=== PATIENT | female | born 1955 | race Caucasian/White ===

== ENCOUNTER 2018-12-21 13:13 | Inpatient (IN) | payer SELFPAY ==
[2018-12-21 14:00] LABS: Absolute Lymphocytes (CBC) 0.4 K/uL (0.7-4.9); Basophils % 0.6 % (0-1.3); Eosinophils % 0.1 % (0-4.4); MPV 8.9 fL (7.6-11.3); Monocytes % 10.7 % (3.3-12.3); RBC Red Blood Cell Count 4.61 M/uL (3.86-4.86)
[2018-12-21] MEDS ORDERED: NA CHLORIDE 0.9% 2,000 ML ONE (14:11)
--- NOTE | 2018-12-21 14:14 | EDPHYS ---
Physician Documentation [facility] Name: Marielos Bryant Age: 63 yrs Sex: Female : 1955 Arrival Date: 12/21/2018 Time: 13:15 Bed 6 Private MD: ED Physician Hipolito Farooq HPI: 12/21 14:05 This 63 yrs old Female presents to ER via EMS with complaints of Syncope. jana 14:05 The patient has experienced near-syncope. Onset: The symptoms/episode began/occurred jana this morning, today. Duration: This was a single episode, that lasted 1 minute(s). Context: occurred outdoors, occurred while the patient was walking. Associated injury: The patient did not suffer any apparent associated injury. Associated signs and symptoms: Pertinent positives: dizziness, lightheadedness, nausea. Current symptoms: weakness. The patient has not experienced similar symptoms in the past. Historical: - Allergies: 13:35 Lisinopril; la1 - Home Meds: 16:08 atenolol 50 mg Oral tab 1 tab once daily [Active]; furosemide 20 mg Oral tab 1 tab once la1 daily [Active]; clonidine HCl 0.3 mg Oral tab 1 tab nightly [Active]; olmesartan oral oral [Active]; librium [Active]; - PMHx: 13:35 ETOH abuse; Hypertension; la1 14:40 Hepatitis; la1 - Immunization history:: Adult Immunizations up to date, Adult Immunizations up to date. - Social history:: Smoking status: Patient/guardian denies using tobacco. - Ebola Screening: : No symptoms or risks identified at this time. - Family history:: not pertinent. ROS: 14:05 Constitutional: Negative for fever, chills, and weight loss, Eyes: Negative for injury, jana pain, redness, and discharge, ENT: Negative for injury, pain, and discharge, Neck: Negative for injury, pain, and swelling, Cardiovascular: Negative for chest pain, palpitations, and edema, Respiratory: Negative for shortness of breath, cough, wheezing, and pleuritic chest pain, Abdomen/GI: Negative for abdominal pain, nausea, vomiting, diarrhea, and constipation, Back: Negative for injury and pain, : Negative for injury, bleeding, discharge, and swelling, MS/Extremity: Negative for injury and deformity, Skin: Negative for injury, rash, and discoloration, Neuro: Negative for headache, weakness, numbness, tingling, and seizure, Psych: Negative for depression, anxiety, suicide ideation, homicidal ideation, and hallucinations, Allergy/Immunology: Negative for hives, rash, and allergies, Endocrine: Negative for neck swelling, polydipsia, polyuria, polyphagia, and marked weight changes, Hematologic/Lymphatic: Negative for swollen nodes, abnormal bleeding, and unusual bruising. Exam: 14:05 Constitutional: This is a well developed, well nourished patient who is awake, alert, jana and in no acute distress. Head/Face: Normocephalic, atraumatic. Eyes: Pupils equal round and reactive to light, extra-ocular motions intact. Lids and lashes normal. Conjunctiva and sclera are non-icteric and not injected. Cornea within normal limits. Periorbital areas with no swelling, redness, or edema. ENT: Nares patent. No nasal discharge, no septal abnormalities noted. Tympanic membranes are normal and external auditory canals are clear. Oropharynx with no redness, swelling, or masses, exudates, or evidence of obstruction, uvula midline. Mucous membranes moist. Neck: Trachea midline, no thyromegaly or masses palpated, and no cervical lymphadenopathy. Supple, full range of motion without nuchal rigidity, or vertebral point tenderness. No Meningismus. Chest/axilla: Normal chest wall appearance and motion. Nontender with no deformity. No lesions are appreciated. Cardiovascular: Regular rate and rhythm with a normal S1 and S2. No gallops, murmurs, or rubs. Normal PMI, no JVD. No pulse deficits. Respiratory: Lungs have equal breath sounds bilaterally, clear to auscultation and percussion. No rales, rhonchi or wheezes noted. No increased work of breathing, no retractions or nasal flaring. Abdomen/GI: Soft, non-tender, with normal bowel sounds. No distension or tympany. No guarding or rebound. No evidence of tenderness throughout. Back: No spinal tenderness. No costovertebral tenderness. Full range of motion. Female : Normal external genitalia. Skin: Warm, dry with normal turgor. Normal color with no rashes, no lesions, and no evidence of cellulitis. MS/ Extremity: Pulses equal, no cyanosis. Neurovascular intact. Full, normal range of motion. Neuro: Awake and alert, GCS 15, oriented to person, place, time, and situation. Cranial nerves II-XII grossly intact. Motor strength 5/5 in all extremities. Sensory grossly intact. Cerebellar exam normal. Normal gait. Psych: Awake, alert, with orientation to person, place and time. Behavior, mood, and affect are within normal limits. Vital Signs: 13:15 BP 76 / 50; Pulse 59; Resp 16; Pulse Ox 98% on R/A; la1 14:08 BP 88 / 54; Pulse 62; Resp 16; Pulse Ox 98% on R/A; la1 14:40 BP 99 / 65; Pulse 58; Resp 16; Temp 97.6; Pulse Ox 98% on R/A; la1 15:00 BP 99 / 68; Pulse 98; Resp 18 S; Pulse Ox 98% on R/A; aa5 15:54 BP 96 / 62; Pulse 81; Resp 16; Pulse Ox 98% on R/A; la1 16:09 BP 112 / 85; Pulse 85; Resp 16; Pulse Ox 98% on R/A; la1 17:09 BP 108 / 78; Pulse 84; Resp 16; Pulse Ox 98% on R/A; la1 MDM: 13:23 Patient medically screened. [facility] 14:07 Data reviewed: vital signs, nurses notes, lab test result(s), EKG, radiologic studies, [facility] CT scan, plain films. 12/21 13:29 Order name: Basic Metabolic Panel [facility] 12/21 13:29 Order name: CBC with Diff [facility] 12/21 13:29 Order name: LFT's [facility] 12/21 13:29 Order name: Magnesium [facility] 12/21 13:29 Order name: NT PRO-BNP [facility] 12/21 13:29 Order name: PT-INR [facility] 12/21 13:29 Order name: Troponin (emerg Dept Use Only); Complete Time: 14:37 [facility] 12/21 13:29 Order name: Lipase; Complete Time: 14:37 [facility] 12/21 13:29 Order name: Acetaminophen; Complete Time: 14:37 [facility] 12/21 13:29 Order name: ETOH Level; Complete Time: 14:16 [facility] 12/21 13:29 Order name: Ptt, Activated; Complete Time: 14:37 [facility] 12/21 13:29 Order name: Salicylate; Complete Time: 15:29 [facility] 12/21 13:29 Order name: Urine Drug Screen; Complete Time: 15:41 [facility] 12/21 13:29 Order name: XRAY Chest (1 view); Complete Time: 15:29 [facility] 12/21 13:29 Order name: Ckmb; Complete Time: 14:37 [facility] 18 13:29 Order name: CK; Complete Time: 14:37 [facility] 12/21 13:31 Order name: Basic Metabolic Panel; Complete Time: 14:37 ED[facility] 18 13:31 Order name: CBC with Automated Diff; Complete Time: 14:16 [facility] 18 13:31 Order name: Liver (Hepatic) Function; Complete Time: 14:37 [facility] 12/21 13:31 Order name: Magnesium; Complete Time: 14:37 [facility] 18 13:31 Order name: NT PRO-BNP; Complete Time: 14:37 [facility] 18 13:31 Order name: Protime (+INR); Complete Time: 14:37 [facility] 12/21 14:39 Order name: Urine Osmolality; Complete Time: 16:11 [facility] 12/21 14:39 Order name: Urine Sodium Random; Complete Time: 15:41 [facility] 12/21 14:39 Order name: Osmolality, Serum; Complete Time: 16:11 [facility] 12/21 15:05 Order name: Urine Culture la1 12/21 15:06 Order name: Urine Dipstick--Ancillary (enter results) bd 12/21 15:25 Order name: Urine Dipstick-Ancillary; Complete Time: 15:29 [facility] 12/21 13:29 Order name: EKG; Complete Time: 13:31 [facility] 12/21 13:29 Order name: Cardiac monitoring; Complete Time: 13:51 [facility] 12/21 13:29 Order name: EKG - Nurse/Tech; Complete Time: 13:51 [facility] 12/21 13:29 Order name: IV Saline Lock; Complete Time: 13:51 [facility] 12/21 13:29 Order name: Labs collected and sent; Complete Time: 13:51 [facility] 12/21 13:29 Order name: O2 Per Protocol; Complete Time: 14:13 [facility] 12/21 13:29 Order name: O2 Sat Monitoring; Complete Time: 14:13 [facility] 12/21 13:29 Order name: Urine Dipstick-Ancillary (obtain specimen); Complete Time: 16:05 [facility] 12/21 14:39 Order name: IV Saline Lock - Large Bore; Complete Time: 14:40 [facility] 12/21 14:44 Order name: Martins; Complete Time: 15:04 [facility] 12/21 14:44 Order name: Seizure Precautions; Complete Time: 15:04 [facility] 12/21 14:45 Order name: Abdomen ; Complete Time: 16:38 EDMS 12/21 14:56 Order name: US Abdomen Limited [facility] 12/21 15:45 Order name: US; Complete Time: 16:11 EDMS Administered Medications: 14:07 Drug: NS 0.9% 1000 ml Route: IV; Rate: 1 bolus; Site: right antecubital; la1 15:20 Follow up: IV Status: Completed infusion; IV Intake: 1000ml aa5 14:07 Drug: NS 0.9% 1000 ml Route: IV; Rate: 1 bolus; Site: right antecubital; la1 15:20 Follow up: IV Status: Completed infusion; IV Intake: 1000ml aa5 15:20 Drug: Pepcid 20 mg Route: IVP; Site: right antecubital; aa5 15:46 Follow up: Response: No adverse reaction la1 15:22 Drug: Thiamine 100 mg Route: IV; Rate: bolus; Site: right antecubital; aa5 15:46 Follow up: IV Status: Completed infusion la1 15:23 Drug: Potassium Effervescent Tablet 25 mEq Route: PO; aa5 15:45 Follow up: Response: No adverse reaction la1 15:24 Drug: Potassium Chloride 20 mEq Route: IV; Rate: per protocol; Site: right antecubital; aa5 15:45 Follow up: IV Status: Completed infusion la1 16:02 Drug: Rocephin - (cefTRIAXone) 1 grams Route: IVPB; Infused Over: 30 mins; Site: right la1 upper arm; 16:03 Follow up: IV Status: Infusion continued upon admission la1 16:05 Not Given (Other Intervention Used): NS 0.9% with KCl 20 mEq/L 1000 ml IV at 125 ml/hr la1 continuous 16:48 Drug: Flagyl 500 mg Volume: 100 ml; Route: IVPB; Rate: 200 ml/hr; Infused Over: 30 la1 mins; Site: right antecubital; 16:50 Follow up: IV Status: Infusion continued upon admission la1 16:58 Drug: Cipro 400 mg Volume: 200 ml; Route: IVPB; Infused Over: 60 mins; Site: right la1 antecubital; 16:58 Follow up: IV Status: Infusion continued upon admission la1 Disposition: 12/21/18 14:13 Hospitalization ordered by Torsten Davies for Inpatient Admission. Preliminary diagnosis are Weakness, Syncope and collapse - near, Hypotension, Heat exhaustion, unspecified, Dehydration, Other chronic pancreatitis, Hypo-osmolality and hyponatremia, Hypokalemia, Unspecified kidney failure, Urinary tract infection, site not specified, Left sided colitis. - Bed requested for Telemetry/MedSurg (Inpatient). - Status is Inpatient Admission. la1 - Condition is Fair. - Problem is new. - Symptoms have improved. UTI on Admission? No Signatures: Dispatcher [employer] EDLA Anastasiya Reich RN RN dw Anderson, Corey, MD MD cha Calderon, Audri, RN RN aa5 Anmol Leos RN RN la1 Corrections: (The following items were deleted from the chart) 13:34 13:31 BASIC METABOLIC PANEL+C.LAB.BRZ ordered. [facility] EDLA 14:13 14:13 Hospitalization Ordered by Tortsen Davies MD for Inpatient Admission. Preliminary jana diagnosis is Weakness; Syncope and collapse - near; Hypotension; Heat exhaustion, unspecified. Bed requested for Telemetry/MedSurg (Inpatient). Status is Inpatient Admission. Condition is Fair. Problem is new. Symptoms have improved. UTI on Admission? No. [facility] 14:41 14:13 12/21/2018 14:13 Hospitalization Ordered by Torsten Davies MD for Inpatient jana Admission. Preliminary diagnosis is Weakness; Syncope and collapse - near; Hypotension; Heat exhaustion, unspecified; Dehydration. Bed requested for Telemetry/MedSurg (Inpatient). Status is Inpatient Admission. Condition is Fair. Problem is new. Symptoms have improved. UTI on Admission? No. jana 14:45 14:40 Abdomen Pelvis W Con+CT.RAD.BRZ ordered. [facility] 14:46 14:41 12/21/2018 14:13 Hospitalization Ordered by Torsten Davies MD for Inpatient jana Admission. Preliminary diagnosis is Weakness; Syncope and collapse - near; Hypotension; Heat exhaustion, unspecified; Dehydration; Other chronic pancreatitis; Hypo-osmolality and hyponatremia; Hypokalemia. Bed requested for Telemetry/MedSurg (Inpatient). Status is Inpatient Admission. Condition is Fair. Problem is new. Symptoms have improved. UTI on Admission? No. jana 14:47 14:44 Abdomen Pelvis W Con+CT.RAD.BRZ ordered. ED[facility] EDMS 15:08 14:46 12/21/2018 14:13 Hospitalization Ordered by Torsten Davies MD for Inpatient dw Admission. Preliminary diagnosis is Weakness; Syncope and collapse - near; Hypotension; Heat exhaustion, unspecified; Dehydration; Other chronic pancreatitis; Hypo-osmolality and hyponatremia; Hypokalemia; Unspecified kidney failure. Bed requested for Telemetry/MedSurg (Inpatient). Status is Inpatient Admission. Condition is Fair. Problem is new. Symptoms have improved. UTI on Admission? No. jana 15:30 15:08 12/21/2018 14:13 Hospitalization Ordered by Torsten Davies MD for Inpatient jana Admission. Preliminary diagnosis is Weakness; Syncope and collapse - near; Hypotension; Heat exhaustion, unspecified; Dehydration; Other chronic pancreatitis; Hypo-osmolality and hyponatremia; Hypokalemia; Unspecified kidney failure. Bed requested for Telemetry/MedSurg (Inpatient). Status is Inpatient Admission. Condition is Fair. Problem is new. Symptoms have improved. UTI on Admission? No. dw 16:40 15:30 12/21/2018 14:13 Hospitalization Ordered by Torsten Davies MD for Inpatient jana Admission. Preliminary diagnosis is Weakness; Syncope and collapse - near; Hypotension; Heat exhaustion, unspecified; Dehydration; Other chronic pancreatitis; Hypo-osmolality and hyponatremia; Hypokalemia; Unspecified kidney failure; Urinary tract infection, site not specified. Bed requested for Telemetry/MedSurg (Inpatient). Status is Inpatient Admission. Condition is Fair. Problem is new. Symptoms have improved. UTI on Admission? No. jana 17:11 16:40 12/21/2018 14:13 Hospitalization Ordered by Torsten Davies MD for Inpatient la1 Admission. Preliminary diagnosis is Weakness; Syncope and collapse - near; Hypotension; Heat exhaustion, unspecified; Dehydration; Other chronic pancreatitis; Hypo-osmolality and hyponatremia; Hypokalemia; Unspecified kidney failure; Urinary tract infection, site not specified; Left sided colitis. Bed requested for Telemetry/MedSurg (Inpatient). Status is Inpatient Admission. Condition is Fair. Problem is new. Symptoms have improved. UTI on Admission? No. jana
--- NOTE | 2018-12-21 14:14 | ER ---
Nurse's Notes [facility] Name: Marielos Bryant Age: 63 yrs Sex: Female : 1955 Arrival Date: 12/21/2018 Time: 13:15 Bed 6 Private MD: Diagnosis: Weakness;Syncope and collapse-near;Hypotension;Heat exhaustion, unspecified;Dehydration;Other chronic pancreatitis;Hypo-osmolality and hyponatremia;Hypokalemia;Unspecified kidney failure;Urinary tract infection, site not specified;Left sided colitis Presentation: 12/21 13:33 Presenting complaint: Patient states: I am in [place] for ETOH withdraws and I have la1 not been eating for drinking well in the last 5 days. I went outside today and passed out, BP 70s/50s on scene. Transition of care: patient was not received from another setting of care. Onset of symptoms was December 21, 2018. Risk Assessment: Do you want to hurt yourself or someone else? Patient reports no desire to harm self or others. Initial Sepsis Screen: Does the patient meet any 2 criteria? No. Patient's initial sepsis screen is negative. Does the patient have a suspected source of infection? No. Patient's initial sepsis screen is negative. Care prior to arrival: None. 13:33 Method Of Arrival: EMS: [facility] la1 13:33 Acuity: ASHLYN 2 la1 Historical: - Allergies: 13:35 Lisinopril; la1 - Home Meds: 16:08 atenolol 50 mg Oral tab 1 tab once daily [Active]; furosemide 20 mg Oral tab 1 tab once la1 daily [Active]; clonidine HCl 0.3 mg Oral tab 1 tab nightly [Active]; olmesartan oral oral [Active]; librium [Active]; - PMHx: 13:35 ETOH abuse; Hypertension; la1 14:40 Hepatitis; la1 - Immunization history:: Adult Immunizations up to date, Adult Immunizations up to date. - Social history:: Smoking status: Patient/guardian denies using tobacco. - Ebola Screening: : No symptoms or risks identified at this time. - Family history:: not pertinent. Screenin:52 Abuse screen: Denies threats or abuse. Nutritional screening: No deficits noted. la1 Tuberculosis screening: No symptoms or risk factors identified. Fall Risk None identified. Assessment: 13:52 General: Appears in no apparent distress. uncomfortable, Behavior is calm, cooperative. la1 Pain: Denies pain. Neuro: Level of Consciousness is awake, obeys commands, lethargic, Oriented to person, place, time, situation. Cardiovascular: Capillary refill < 3 seconds Patient's skin is warm and dry. Rhythm is sinus tachycardia. Respiratory: Airway is patent Respiratory effort is even, unlabored, Respiratory pattern is regular, symmetrical, Breath sounds are clear bilaterally. GI: No signs and/or symptoms were reported involving the gastrointestinal system. : No signs and/or symptoms were reported regarding the genitourinary system. 15:00 Reassessment: Patient appears in no apparent distress at this time. No changes from la1 previously documented assessment. Patient and/or family updated on plan of care and expected duration. Pain level reassessed. 16:07 Reassessment: assisted patient to bedside commode as she stated it felt as if she ss needed to have a BM. Pt did not have BM, but is now back in bed, lights dimmed per request. On monitors. 16:24 Reassessment: Awaiting results from CT before admission. la1 Vital Signs: 13:15 BP 76 / 50; Pulse 59; Resp 16; Pulse Ox 98% on R/A; la1 14:08 BP 88 / 54; Pulse 62; Resp 16; Pulse Ox 98% on R/A; la1 14:40 BP 99 / 65; Pulse 58; Resp 16; Temp 97.6; Pulse Ox 98% on R/A; la1 15:00 BP 99 / 68; Pulse 98; Resp 18 S; Pulse Ox 98% on R/A; aa5 15:54 BP 96 / 62; Pulse 81; Resp 16; Pulse Ox 98% on R/A; la1 16:09 BP 112 / 85; Pulse 85; Resp 16; Pulse Ox 98% on R/A; la1 17:09 BP 108 / 78; Pulse 84; Resp 16; Pulse Ox 98% on R/A; la1 ED Course: 13:15 Patient arrived in ED. la1 13:23 Hipolito Farooq MD is Attending Physician. jana 13:33 Anmol Leos RN is Primary Nurse. la1 13:34 Triage completed. la1 13:35 Arm band placed on left wrist. EKG completed in triage. Results shown to MD. la1 13:52 Placed in gown. Bed in low position. Call light in reach. athletic monitor on. Pulse ox la1 on. NIBP on. 13:52 No provider procedures requiring assistance completed. Accessed peripheral vein via la1 ultrasound, utilizing dynamic ultrasound technique using 18G Sureflo IV catheter Clean \T\ dry. Dressing intact. Good blood return. Flushes easily. RAC. 14:11 Torsten Davies MD is Hospitalizing Provider. jana 14:33 X-ray completed. Portable x-ray completed in exam room. Patient tolerated procedure jb2 well. 14:36 XRAY Chest (1 view) In Process Unspecified. EDMS 15:00 Martins cath inserted, using sterile technique, 16 Fr., by me, balloon inflated, to aa5 gravity drainage, urine specimen collected. returned clear yellow urine. Patient tolerated well. 17:11 Patient admitted, IV remains in place. la1 Administered Medications: 14:07 Drug: NS 0.9% 1000 ml Route: IV; Rate: 1 bolus; Site: right antecubital; la1 15:20 Follow up: IV Status: Completed infusion; IV Intake: 1000ml aa5 14:07 Drug: NS 0.9% 1000 ml Route: IV; Rate: 1 bolus; Site: right antecubital; la1 15:20 Follow up: IV Status: Completed infusion; IV Intake: 1000ml aa5 15:20 Drug: Pepcid 20 mg Route: IVP; Site: right antecubital; aa5 15:46 Follow up: Response: No adverse reaction la1 15:22 Drug: Thiamine 100 mg Route: IV; Rate: bolus; Site: right antecubital; aa5 15:46 Follow up: IV Status: Completed infusion la1 15:23 Drug: Potassium Effervescent Tablet 25 mEq Route: PO; aa5 15:45 Follow up: Response: No adverse reaction la1 15:24 Drug: Potassium Chloride 20 mEq Route: IV; Rate: per protocol; Site: right antecubital; aa5 15:45 Follow up: IV Status: Completed infusion la1 16:02 Drug: Rocephin - (cefTRIAXone) 1 grams Route: IVPB; Infused Over: 30 mins; Site: right la1 upper arm; 16:03 Follow up: IV Status: Infusion continued upon admission la1 16:05 Not Given (Other Intervention Used): NS 0.9% with KCl 20 mEq/L 1000 ml IV at 125 ml/hr la1 continuous 16:48 Drug: Flagyl 500 mg Volume: 100 ml; Route: IVPB; Rate: 200 ml/hr; Infused Over: 30 la1 mins; Site: right antecubital; 16:50 Follow up: IV Status: Infusion continued upon admission la1 16:58 Drug: Cipro 400 mg Volume: 200 ml; Route: IVPB; Infused Over: 60 mins; Site: right la1 antecubital; 16:58 Follow up: IV Status: Infusion continued upon admission la1 Intake: 15:20 IV: 1000ml; Total: 1000ml. aa5 15:20 IV: 1000ml; Total: 2000ml. aa5 Outcome: 14:13 Decision to Hospitalize by Provider. jana 17:10 Admitted to Tele accompanied by tech, room 403, with chart. la1 17:10 Condition: stable 17:10 Instructed on the need for admit. 17:11 Patient left the ED. la1 Signatures: Dispatcher [employer] Hipolito Oconnor MD MD cha Buechter, Jesse jb2 Venus Williamson RN RN aa5 Hina Palencia RN RN ss Attema, Lee, RN RN la1
[2018-12-21 14:27] LABS: ALT/SGPT 61 U/L (12-78); AST/SGOT 73 U/L (15-37); Albumin 4.4 g/dL (3.4-5.0); Alkaline Phosphatase 76 U/L (45-117); BUN Blood Urea Nitrogen 78 mg/dL (7-18); Bicarbonate 26 mmol/L (21-32); Bilirubin Direct 0.5 mg/dL (0-0.2); Bilirubin Total 1.2 mg/dL (0.2-1.0); CKMB Creatine Kinase MB 2.1 ng/mL (0.3-3.6); Glucose Level 121 mg/dL (74-106); Lipase 20350 U/L (73-393); Magnesium 3.4 mg/dL (1.8-2.4); NT PRO-BNP 2979 pg/mL (<125); Protein, Total 9.3 g/dL (6.4-8.2); Sodium Level 121 mmol/L (136-145); Troponin (Emerg Dept Use Only) < 0.02 ng/mL (0.0-0.045)
[2018-12-21 14:29] LABS: Potassium 2.9 mmol/L (3.5-5.1); Protime INR 0.87
--- NOTE | 2018-12-21 14:58 | RAD REPORT ---
EXAM DESCRIPTION: RAD - Chest Single View - 12/21/2018 2:36 pm CLINICAL HISTORY: Cough, syncope COMPARISON: None. TECHNIQUE: AP portable chest image was obtained 1435 hour . FINDINGS: Lungs are clear. Heart and vasculature are normal. No measurable pleural effusion and no p neumothorax. No acute bony abnormality seen. No acute aortic findings suspected. Calcified breast imp lant capsules noted. IMPRESSION: No acute cardiopulmonary process.
[2018-12-21 15:21] LABS: Urine Blood 1+ (NEG); Urine Glucose TRACE (NEG); Urine Protein 1+ (NEG); Urine Specific Gravity 1.015 (1.005-1.030)
[2018-12-21] MEDS ORDERED: POTASSIUM 25 MEQ EFFERV TAB ONE (15:28)
[2018-12-21] MEDS ORDERED: THIAMINE 200 MG/2 ML INJ ONE (15:28)
[2018-12-21] MEDS ORDERED: FAMOTIDINE 20 MG/2 ML VIAL IV ONE (15:29)
[2018-12-21] MEDS ORDERED: KCL 20 MEQ/100 mL IVPB 20 MEQ/100 ML BAG IV ONE (15:29)
[2018-12-21] MEDS ORDERED: NA CHLORIDE 0.9% 500 ML ONE (15:29)
[2018-12-21] MEDS ORDERED: NS KCL 20MEQ 1,000 ML IV ONE (15:29)
[2018-12-21 15:31] LABS: Barbiturates NEGATIVE (NEGATIVE); Benzodiazepines POSITIVE (NEGATIVE); Cocaine NEGATIVE (NEGATIVE); METHAMPHETAM NEGATIVE (NEGATIVE); Methadone NEGATIVE (NEGATIVE); Opiates NEGATIVE (NEGATIVE); Phencyclidine NEGATIVE (NEGATIVE); THC Cannibis NEGATIVE (NEGATIVE)
--- NOTE | 2018-12-21 15:43 | RAD REPORT ---
EXAM DESCRIPTION: US - Abdomen Exam Limited - 12/21/2018 3:31 pm CLINICAL HISTORY: ABD PAIN COMPARISON: No comparisons FINDINGS: The gallbladder demonstrates no gallstones. No pericholecystic fluid or gallbladder wall t hickening. The common bile duct is normal measuring 4-5 mm. The liver demonstrates no findings of intrahepatic biliary dilatation. IMPRESSION: Unremarkable examination.
[2018-12-21] MEDS ORDERED: CEFTRIAXONE/SWI 1gm 1 GM/10 ML SYR ONE (15:53)
--- NOTE | 2018-12-21 16:28 | EKG ---
Test Date: 2018-12-21 Test Time: 13:22:20 [employer]er: CHRIS-Maryuri MEASUREMENT RESULTS: Intervals: Rate: 57 AR: 188 QRSD: 94 QT: 578 QTc: 562 [place]: P: 42 AR: 188 QRS: -12 T: 54 INTERPRETIVE STATEMENTS: Sinus bradycardia RSR' or QR pattern in V1 suggests right ventricular conduction delay Inferior-posterior infarct, age undetermined Prolonged QT Abnormal ECG No previous ECG available for comparison Electronically Signed On 12-21-18 16:27:21 CDT by Jose Luther
--- NOTE | 2018-12-21 16:33 | RAD REPORT ---
EXAM DESCRIPTION: CT - Abdomen Pelvis Wo Contrast - 12/21/2018 4:23 pm CLINICAL HISTORY: Abdominal pain. ABD PAIN COMPARISON: <Comparisons> TECHNIQUE: CT imaging of the abdomen and pelvis was performed without contrast. Solid organ and vasc ular assessment is limited due to lack of IV contrast. All CT scans are performed using dose optimization technique as appropriate and may include automated exposure control or mA/KV adjustment according to patient size. FINDINGS: The lung bases are mildly emphysematous. The liver, spleen, adrenal glands and kidneys are within normal limits for a limited non-contrast exa mination.Small amount of inflammation is seen around the pancreas. No bowel obstruction, free air, free fluid or abscess. There is diffuse mucosal thickening of the col on, greatest involving the cecum and ascending colon compatible with a nonspecific colitis. The appen alexy is normal. Multilevel degenerative spondylosis of the lumbar spine. IMPRESSION: [id number] nonspecific colitis is present, greatest involving the right colon. No pneumatosis evident. Mild inflammation around the pancreas, suspicious for pancreatitis. Suggest correlation with amylase and lipase levels. A limited non-contrast examination was performed as detailed.
[2018-12-21] MEDS ORDERED: METRONIDAZOLE 500mg IVPB 500 MG/100 ML BAG IV ONE (17:01)
[2018-12-21] MEDS ORDERED: CIPROFLOXACIN 400mg IV 400 MG/200 ML BAG IV ONE (17:01)
[2018-12-21] MEDS ORDERED: ONDANSETRON 4 MG/2 ML VIAL IV PRN (17:37)
[2018-12-21] MEDS ORDERED: FLUMAZENIL 0.1 MG/ML (5 mL VIAL) IV PRN (17:37)
[2018-12-21] MEDS ORDERED: LORAZEPAM 1 MG TABLET PO PRN (17:37)
--- NOTE | 2018-12-21 18:10 | P.HP ---
Certification for Inpatient Patient admitted to: Inpatient With expected LOS: >2 Midnights Practitioner: I am a practitioner with admitting privileges, knowledge of patient current condition, hospital course, and medical plan of care. Services: Services provided to patient in accordance with Admission requirements found in Title 42 Section 412.3 of the Code of Federal Regulations Patient History Date of Service: 12/21/18 History of Present Illness: This is a 63 yr old female with a PMH of alcohol abuse and HTN who was brought in from a detox facility ([facility]) for an episode of syncope. Per patient, for the past 1 week, she has not been able to eat. She is also complaining of nausea/vomiting with any PO intake. She also complains of diffuse abdominal pain that has been progressively worsening. She describes it as a crampy type of pain that is not radiating. Worsens with food, and associated with nausea and vomiting with PO intake. She has been in a alcohol detox facility of the past 2 days. Last alcoholic drink was 2 days ago. She was brought to the ED by EMS. In the ED, her Bp was 76/50, HR was 59 and 98% on RA. Her labs were remarkable for Na 121, K+ 2.9, Cr of 2.43, TB elevated at 1.5, DB elevated at 0.5 and AST elevated at 73. Lipase was 20,350. Abdominal CT was positive for evidence of pancreatitis and abdominal ultrasound was normal. At the time of my exam, she was AAOx3, in mod distress d/t abdominal pain and HDS. She was admitted for acute pancreatitis, likely secondary to alcohol abuse. She will need inpatient admission d/t her lipase levels, and pancreatitis finding, which will require more than 2 days of treatment. Allergies SABRA Inhibitors Allergy (Verified 12/21/18 17:37) Anaphylaxis lisinopril Allergy (Verified 12/21/18 17:37) Anaphylaxis Home medications list reviewed: Yes - Past Medical/Surgical History -: HTN Review of Systems 10-point ROS is otherwise unremarkable Physical Examination - Vital Signs Temperature: 97.8 F Blood Pressure: 105/75 Pulse: 61 Respirations: 18 Pulse Ox (%): 97 - Physical Exam General: Alert, Oriented x3, Moderate distress, Other (Obese) Respiratory: Clear to auscultation bilaterally, Normal air movement Cardiovascular: Regular rate/rhythm, Normal S1 S2 Gastrointestinal: Non-distended, Tenderness (worse in epigastric area. ), Guarding Musculoskeletal: No tenderness Integumentary: No rashes Neurological: Normal speech, Normal strength at 5/5 x4 extr, Normal tone, Normal affect - Studies Laboratory Data (last 24 hrs) 12/21/18 13:50: PT 10.3, INR 0.87, APTT 24.6 12/21/18 13:50: WBC 7.3, Hgb 15.2 H, Hct 44.0, Plt Count 165 12/21/18 13:50: Sodium 121 L, Potassium 2.9 L*, BUN 78 H, Creatinine 2.43 H, Glucose 121 H, Magnesium 3.4 H, Total Bilirubin 1.2 H, AST 73 H, ALT 61, Alkaline Phosphatase 76, Lipase 11625 H Assessment and Plan - Problems (Diagnosis) (1) Pancreatitis Current Visit: Yes Status: Acute (2) Hypertension Current Visit: Yes Status: Acute (3) GENE (acute kidney injury) Current Visit: Yes Status: Acute (4) Hypokalemia Current Visit: Yes Status: Acute (5) Hyponatremia Current Visit: Yes Status: Acute (6) Syncope Current Visit: Yes Status: Acute (7) Dehydration Current Visit: Yes Status: Acute (8) ETOH abuse Current Visit: Yes Status: Acute - Plan Admit to the floor as inpatient. Keep NPO IVF, wth Banana bag Frequent neuro checks CIWA protocol - monitor for withdrawal Librium, Multivitamins. Recheck AM labs Will need continued encouragement for alcohol cessation/rehab. DVT prophylaxis: Lovenox GI prophyalxis: None Diet; NPO Disposition: pending symptomatic improvement. - Advance Directives Does patient have a Living Will: No Does patient have a Durable POA for Healthcare: No Time Spent Managing Pts Care (In Minutes): 55
[2018-12-21 18:16] VITALS: BMI 22.1
[2018-12-21 19:04] LABS: Urine Appearance CLEAR; Urine Bilirubin NEGATIVE (NEG); Urine Blood 1+ (NEG); Urine Color YELLOW; Urine Glucose 1+ (NEG); Urine Protein 1+ (NEG); Urine Urobilinogen 0.2 mg/dL (0.2-1.0); Urine pH 6.5 (5.0-7.0)
[2018-12-21 19:29] LABS: Urine Bacteria <20 /HPF (<20); Urine Culture Reflex Order NOT NEEDED; Urine Microscopic Reflex ORDER UMIC
[2018-12-22] MEDS: KCL 20 MEQ/100 mL IVPB 20 MEQ/100 ML BAG IV SCH ×5 (01:31→23:46)
[2018-12-22 04:28] LABS: Absolute Lymphocytes (CBC) 0.5 K/uL (0.7-4.9); Basophils % 0.5 % (0-1.3); Eosinophils % 0.4 % (0-4.4); Hematocrit 38.9 % (36.0-45.0); Lymphocytes % 7.6 % (15.3-44.8); MPV 9.2 fL (7.6-11.3); Monocytes % 14.7 % (3.3-12.3); RBC Red Blood Cell Count 4.06 M/uL (3.86-4.86)
[2018-12-22 04:40] LABS: Albumin 3.7 g/dL (3.4-5.0); Bilirubin Total 0.8 mg/dL (0.2-1.0); Phosphorus 2.1 mg/dL (2.5-4.9); Protein, Total 7.7 g/dL (6.4-8.2)
[2018-12-22 04:41] LABS: Potassium 2.8 mmol/L (3.5-5.1)
[2018-12-22] MEDS: FOLIC ACID 1 MG TABLET PO SCH (09:00)
[2018-12-22] MEDS: THIAMINE HCL 100 MG TABLET PO SCH (09:00)
[2018-12-22] MEDS ORDERED: POTASSIUM PHOS IN 0.9 % NACL 15 MMOL/250 ML BAG IV ONE (09:00)
[2018-12-22] MEDS: MULTIVITAMIN TAB PO SCH (09:00)
[2018-12-22] MEDS: FOLIC ACID 1 MG, MULTIVITAMINS INJ 10 ML, THIAMINE HCL 100 MG in NA CHLORIDE 0.9% 1,000 ML IV SCH (09:16)
--- NOTE | 2018-12-22 14:30 | P.PN ---
Subjective Date of Service: 12/22/18 Subjective: Improving Patient seen and examined at bedside. No family at bedside. Chart reviewed and case discussed with nursing staff. She reports improved pain and would like to try something more that just broth. Denies nausea/vomiting, fevers or chills. Review of Systems 10-point ROS is otherwise unremarkable Physical Examination - Vital Signs Temperature: 97 F Blood Pressure: 109/76 Pulse: 69 Respirations: 20 Pulse Ox (%): 98 - Physical Exam General: Alert, In no apparent distress, Oriented x3, Obese HEENT: Atraumatic, PERRLA, EOMI Neck: Supple, JVD not distended Respiratory: Clear to auscultation bilaterally, Normal air movement Cardiovascular: Regular rate/rhythm, Normal S1 S2 Gastrointestinal: Normal bowel sounds, Tenderness Musculoskeletal: No tenderness Integumentary: No rashes Neurological: Normal speech, Normal tone, Normal affect Lymphatics: No axilla or inguinal lymphadenopathy - Studies Laboratory Data (last 24 hrs) 12/21/18 13:50: PT 10.3, INR 0.87, APTT 24.6 12/21/18 13:50: Sodium 121 L, Potassium 2.9 L*, BUN 78 H, Creatinine 2.43 H, Glucose 121 H, Magnesium 3.4 H, Total Bilirubin 1.2 H, AST 73 H, ALT 61, Alkaline Phosphatase 76, Lipase 59928 H Assessment And Plan - Current Problems (Diagnosis) (1) Pancreatitis Current Visit: Yes Status: Acute Plan: Likely secondary to alcohol usage. Improving abdominal pain. - Start CLD, advance as tolerated. - Pain control - IVF - Zofran for nausea Qualifiers: Chronicity: acute Pancreatitis type: alcohol induced Acute pancreatitis complication: no infection or necrosis Qualified Code(s): K85.20 - Alcohol induced acute pancreatitis without necrosis or infection (2) GENE (acute kidney injury) Current Visit: Yes Status: Acute (3) Hypokalemia Current Visit: Yes Status: Acute Plan: Continue to replete and monitor. (4) Hyponatremia Current Visit: Yes Status: Acute (5) Dehydration Current Visit: Yes Status: Acute Plan: Continue IVF, Improving (6) ETOH abuse Current Visit: Yes Status: Acute Plan: IVF, wth Banana bag Frequent neuro checks CIWA protocol - monitor for withdrawal Librium Recheck AM labs Will need continued encouragement for alcohol cessation/rehab. Pt plans to return to facility for detox program when discharged from here. (7) Hypertension Current Visit: Yes Status: Chronic Plan: Stable. Continue home medications and continue to monitor. Qualifiers: Hypertension type: essential hypertension Qualified Code(s): I10 - Essential (primary) hypertension (8) Syncope Current Visit: Yes Status: Acute Plan: Resolved. Unsure of etiology but could be secondary to dedydration Qualifiers: Syncope type: unspecified Qualified Code(s): R55 - Syncope and collapse (9) Urinary tract infection Current Visit: Yes Status: Acute Plan: Continue IV Rocephin. Pending urine cultures. Qualifiers: Urinary tract infection type: acute cystitis Hematuria presence: without hematuria Qualified Code(s): N30.00 - Acute cystitis without hematuria - Plan DVT prophylaxis: Lovenox GI prophyalxis: None Diet; CLD, advance as tolerated Disposition: pending symptomatic improvement.
[2018-12-22] MEDS: chlordiazePOXIDE HCl 25 MG CAP PO SCH ×2 (17:11→23:45)
[2018-12-22] MEDS: CLONIDINE HCL 0.3 MG TAB PO SCH (21:14)
[2018-12-22] MEDS ORDERED: NA CHLORIDE 0.9% 500 ML ONE (23:47)
[2018-12-23] MEDS: KCL 20 MEQ/100 mL IVPB 20 MEQ/100 ML BAG IV SCH (02:48)
[2018-12-23] MEDS: chlordiazePOXIDE HCl 25 MG CAP PO SCH ×3 (05:47→17:00)
[2018-12-23 07:33] LABS: Absolute Lymphocytes (CBC) 0.7 K/uL (0.7-4.9); Basophils % 0.7 % (0-1.3); Eosinophils % 1.6 % (0-4.4); Hematocrit 38.6 % (36.0-45.0); Lymphocytes % 11.7 % (15.3-44.8); MPV 8.3 fL (7.6-11.3); Monocytes % 15.3 % (3.3-12.3); RBC Red Blood Cell Count 4.01 M/uL (3.86-4.86)
[2018-12-23 07:48] LABS: Albumin 3.7 g/dL (3.4-5.0); Bilirubin Total 0.8 mg/dL (0.2-1.0); Phosphorus 1.1 mg/dL (2.5-4.9); Potassium 3.6 mmol/L (3.5-5.1); Protein, Total 7.6 g/dL (6.4-8.2)
[2018-12-23] MEDS: VALSARTAN 80 MG TAB PO SCH (08:54)
[2018-12-23] MEDS: ATENOLOL 50 MG TAB PO SCH (08:54)
[2018-12-23] MEDS: FUROSEMIDE 20 MG TABLET PO SCH (08:54)
[2018-12-23] MEDS ORDERED: HOME MED 1 EA UNK (Olmesartan Medoxomil [Olmesartan Medoxomil] 20 MG) PO SCH (09:00)
[2018-12-23] MEDS: THIAMINE HCL 100 MG TABLET PO SCH (09:11)
[2018-12-23] MEDS: FOLIC ACID 1 MG, MULTIVITAMINS INJ 10 ML, THIAMINE HCL 100 MG in NA CHLORIDE 0.9% 1,000 ML IV SCH (09:11)
[2018-12-23] MEDS: MULTIVITAMIN TAB PO SCH (09:11)
[2018-12-23] MEDS: FOLIC ACID 1 MG TABLET PO SCH (09:11)
[2018-12-23] MEDS: NA CHLORIDE 0.9% 1,000 ML IV SCH (10:00)
[2018-12-23 10:10] LABS: Blood Morphology Comment NOT SEEN (NOT SEEN); Platelet Estimate ADEQ
[2018-12-23] MEDS ORDERED: POTASSIUM 25 MEQ EFFERV TAB PO ONE (10:21)
--- NOTE | 2018-12-23 10:57 | P.PN ---
Subjective Date of Service: 12/23/18 Subjective: Improving Patient seen and examined at bedside. No family at bedside. Chart reviewed and case discussed with nursing staff. She reports improved pain, tolerating clear liquid diet. Denies nausea/vomiting, fevers or chills. Review of Systems 10-point ROS is otherwise unremarkable Physical Examination - Vital Signs Temperature: 97.1 F Blood Pressure: 111/69 Pulse: 60 Respirations: 14 Pulse Ox (%): 96 - Physical Exam General: Alert, In no apparent distress, Oriented x3, Other (Drowsy, but arousable. Answers questions appropriately) HEENT: Atraumatic, PERRLA, EOMI Neck: Supple, JVD not distended Respiratory: Clear to auscultation bilaterally, Normal air movement Cardiovascular: Regular rate/rhythm, Normal S1 S2 Gastrointestinal: Normal bowel sounds, Soft and benign, No tenderness Musculoskeletal: No tenderness Integumentary: No rashes Neurological: Normal speech, Normal tone, Normal affect Assessment And Plan - Current Problems (Diagnosis) (1) Pancreatitis Current Visit: Yes Status: Acute Plan: Likely secondary to alcohol usage. Improving abdominal pain. - advance to full liquid, advance as tolerated - Pain control - continue IVF. Will discontinue once tolerating oral diet - Zofran for nausea Qualifiers: Chronicity: acute Pancreatitis type: alcohol induced Acute pancreatitis complication: no infection or necrosis Qualified Code(s): K85.20 - Alcohol induced acute pancreatitis without necrosis or infection (2) GENE (acute kidney injury) Current Visit: Yes Status: Acute Plan: Resolved (3) Hypokalemia Current Visit: Yes Status: Acute Plan: Resolved. Continue to replete per protocol and monitor. (4) Hyponatremia Current Visit: Yes Status: Acute Plan: Improving, continue IV fluids (5) Dehydration Current Visit: Yes Status: Acute Plan: Continue IVF, Improving (6) ETOH abuse Current Visit: Yes Status: Acute Plan: IVF, wth Banana bag Frequent neuro checks [place] protocol - monitor for withdrawal Librium scheduled Will need continued encouragement for alcohol cessation/rehab. Pt plans to return to facility for detox program when discharged from here. (7) Hypertension Current Visit: Yes Status: Chronic Plan: Stable. Continue home medications and continue to monitor. Qualifiers: Hypertension type: essential hypertension Qualified Code(s): I10 - Essential (primary) hypertension (8) Syncope Current Visit: Yes Status: Acute Plan: Resolved. Unsure of etiology but could be secondary to dehydration Qualifiers: Syncope type: unspecified Qualified Code(s): R55 - Syncope and collapse (9) Urinary tract infection Current Visit: Yes Status: Acute Plan: Urine cultures positive for E. coli. Sensitive to Augmentin. Switch Rocephin to Augmentin. We will complete a 5 day course. Qualifiers: Urinary tract infection type: acute cystitis Hematuria presence: without hematuria Qualified Code(s): N30.00 - Acute cystitis without hematuria - Plan DVT prophylaxis: Lovenox GI prophyalxis: None Diet; full liquid diet, advance as tolerated Disposition: pending symptomatic improvement. Possible discharge in the next 24 hr.
[2018-12-23] MEDS: LORazepam 2 MG/ML VIAL IV PRN ×2 (18:22→19:25)
[2018-12-24] MEDS: AMOX/K CLAV 500 MG TAB PO SCH ×2 (00:09→09:19)
[2018-12-24] MEDS: LORazepam 2 MG/ML VIAL IV PRN ×2 (00:09→05:48)
[2018-12-24] MEDS: CLONIDINE HCL 0.3 MG TAB PO SCH (00:09)
[2018-12-24] MEDS: chlordiazePOXIDE HCl 25 MG CAP PO SCH ×2 (00:10→05:47)
[2018-12-24 01:02] VITALS: TEMP 97
[2018-12-24] MEDS: NA CHLORIDE 0.9% 1,000 ML IV SCH (05:49)
[2018-12-24 06:39] LABS: Albumin 3.4 g/dL (3.4-5.0); Bilirubin Total 0.6 mg/dL (0.2-1.0); Potassium 3.3 mmol/L (3.5-5.1)
[2018-12-24] MEDS ORDERED: POTASSIUM CL SA 10 MEQ TAB PO ONE (07:15)
[2018-12-24 07:46] LABS: Absolute Lymphocytes (CBC) 0.8 K/uL (0.7-4.9); Basophils % 1.1 % (0-1.3); Eosinophils % 2.6 % (0-4.4); Hematocrit 38.6 % (36.0-45.0); Lymphocytes % 14.9 % (15.3-44.8); MPV 7.7 fL (7.6-11.3); Monocytes % 20.3 % (3.3-12.3); RBC Red Blood Cell Count 3.98 M/uL (3.86-4.86)
[2018-12-24 08:10] VITALS: O2SAT 98
[2018-12-24 08:35] VITALS: BP 132/94
[2018-12-24] MEDS: FOLIC ACID 1 MG, MULTIVITAMINS INJ 10 ML, THIAMINE HCL 100 MG in NA CHLORIDE 0.9% 1,000 ML IV SCH (09:00)
[2018-12-24] MEDS: POTASS/SODIUM PHOSPHATE 1 PKT POWD.PACK PO SCH ×2 (09:00→09:19)
[2018-12-24] MEDS: ATENOLOL 50 MG TAB PO SCH (09:19)
[2018-12-24] MEDS: VALSARTAN 80 MG TAB PO SCH (09:19)
[2018-12-24] MEDS: MULTIVITAMIN TAB PO SCH (09:19)
[2018-12-24] MEDS: FOLIC ACID 1 MG TABLET PO SCH (09:19)
[2018-12-24] MEDS: THIAMINE HCL 100 MG TABLET PO SCH (09:19)
[2018-12-24] MEDS: FUROSEMIDE 20 MG TABLET PO SCH (09:19)
--- NOTE | 2018-12-24 17:39 | P.DS ---
Admission Date: 12/21/18 Discharge Date: 12/24/18 Disposition: ROUTINE DISCHARGE Discharge Condition: GOOD Reason for Admission: Pancreatitis, alcohol abuse - Problems (1) Pancreatitis Status: Acute Qualifiers: Chronicity: acute Pancreatitis type: alcohol induced Acute pancreatitis complication: no infection or necrosis Qualified Code(s): K85.20 - Alcohol induced acute pancreatitis without necrosis or infection (2) GENE (acute kidney injury) Status: Acute (3) Hypokalemia Status: Acute (4) Hyponatremia Status: Acute (5) Dehydration Status: Acute (6) ETOH abuse Status: Acute (7) Hypertension Status: Chronic Qualifiers: Hypertension type: essential hypertension Qualified Code(s): I10 - Essential (primary) hypertension (8) Syncope Status: Acute Qualifiers: Syncope type: unspecified Qualified Code(s): R55 - Syncope and collapse (9) Urinary tract infection Status: Acute Qualifiers: Urinary tract infection type: acute cystitis Hematuria presence: without hematuria Qualified Code(s): N30.00 - Acute cystitis without hematuria Brief History of Present Illness: This is a 63 yr old female with a PMH of alcohol abuse and HTN who was brought in from a detox facility ([facility]) for an episode of syncope. Per patient, for the past 1 week, she has not been able to eat. She is also complaining of nausea/vomiting with any PO intake. She also complains of diffuse abdominal pain that has been progressively worsening. She describes it as a crampy type of pain that is not radiating. Worsens with food, and associated with nausea and vomiting with PO intake. She has been in a alcohol detox facility of the past 2 days. Last alcoholic drink was 2 days ago. She was brought to the ED by EMS. In the ED, her Bp was 76/50, HR was 59 and 98% on RA. Her labs were remarkable for Na 121, K+ 2.9, Cr of 2.43, TB elevated at 1.5, DB elevated at 0.5 and AST elevated at 73. Lipase was 20,350. Abdominal CT was positive for evidence of pancreatitis and abdominal ultrasound was normal. At the time of my exam, she was AAOx3, in mod distress d/t abdominal pain and HDS. Hospital Course: She was admitted for acute pancreatitis, likely secondary to alcohol abuse. She was kept NPO, IV fluids were started. She was provided with pain control and Zofran for nausea as needed. Her symptoms improved. She was slowly advanced to clear liquid diet and then to a full liquid and finally to a GI soft. She tolerated GI soft diet prior to being discharged. The lipase level improved and she also improved clinically. She did have an acute kidney injury along with electrolyte imbalances on admission, which resolved with IV fluids. Patient was also provided with banana bag, CIWA protocol and scheduled Librium. Patient plans return to the facility for detox program. She was diagnosed with a urinary tract infection, cultures positive for E. coli. She received IV antibiotics here and she was discharged on oral Augmentin to complete a 5 day course. Her diagnoses and treatment plan were explained to her, all questions are answered and patient verbalized understanding. She was then discharged home in a safe and stable manner. She will be going back to the detox facility from here. Vital Signs/Physical Exam: Temp Pulse Resp BP Pulse Ox 97.0 F 99 H 20 132/94 H 100 12/24/18 08:00 12/24/18 08:00 12/24/18 08:00 12/24/18 08:00 12/24/18 08:00 General: Alert, In no apparent distress, Oriented x3 HEENT: Atraumatic, PERRLA, EOMI Neck: Supple, JVD not distended Respiratory: Clear to auscultation bilaterally, Normal air movement Cardiovascular: Regular rate/rhythm, Normal S1 S2 Gastrointestinal: Normal bowel sounds, No tenderness Musculoskeletal: No tenderness Integumentary: No rashes Neurological: Normal speech, Normal tone, Normal affect Lymphatics: No axilla or inguinal lymphadenopathy Laboratory Data at Discharge: WBC 5.6 K/uL (4.3-10.9) 12/24/18 07:21 Hgb 13.3 g/dL (12.0-15.0) 12/24/18 07:21 Hct 38.6 % (36.0-45.0) 12/24/18 07:21 Plt Count 171 K/uL (152-406) D 12/24/18 07:21 PT 10.3 SECONDS (9.5-12.5) 12/21/18 13:50 INR 0.87 12/21/18 13:50 APTT 24.6 SECONDS (24.3-36.9) 12/21/18 13:50 Sodium 136 mmol/L (136-145) 12/24/18 05:43 Potassium 3.3 mmol/L (3.5-5.1) L 12/24/18 05:43 BUN 17 mg/dL (7-18) 12/24/18 05:43 Creatinine 0.69 mg/dL (0.55-1.3) 12/24/18 05:43 Glucose 104 mg/dL (74-106) 12/24/18 05:43 Phosphorus 1.1 mg/dL (2.5-4.9) L 12/23/18 07:22 Magnesium 2.9 mg/dL (1.8-2.4) H D 12/22/18 10:07 Total Bilirubin 0.6 mg/dL (0.2-1.0) 12/24/18 05:43 AST 27 U/L (15-37) 12/24/18 05:43 ALT 30 U/L (12-78) 12/24/18 05:43 Alkaline Phosphatase 54 U/L (45-117) 12/24/18 05:43 Lipase 8944 U/L (73-393) H 12/22/18 04:07 Home Medications: Atenolol 50 mg PO DAILY 12/21/18 Chlordiazepoxide HCl [Librium] 25 mg PO 1X 12/21/18 Chlordiazepoxide HCl [Librium] 25 mg PO TID 12/21/18 Chlordiazepoxide HCl [Librium] 50 mg PO 1X 12/21/18 Chlordiazepoxide HCl [Librium] 50 mg PO BID 12/21/18 Clonidine HCl [Catapres] 0.3 mg PO BEDTIME 12/21/18 Furosemide 20 mg PO DAILY 12/21/18 Olmesartan Medoxomil 20 mg PO DAILY 12/21/18 Amox/Clavulanate [Augmentin 500-125 mg Tab*] 500 mg PO BID #6 tab 12/24/18 New Medications: Amox/Clavulanate [Augmentin 500-125 mg Tab*] 500 mg PO BID #6 tab Patient Discharge Instructions: Please follow up with your primary care physician in 2-3 days. Please return to the Emergency room for worsening symptoms. Diet: Renal Activity: Ad ted Time spent managing pt's care (in minutes): 55
== END 2018-12-24 10:15 | disposition home or self-care (01) | DRG 439 ==
LOC: ER 13:13 → ERHOLD 14:57 → 4TH 16:37
PROVIDERS: ADMIT Family Medicine; ATTEND Family Medicine
DX: K85.20 Alcohol induced acute pancreatitis without necrosis or infection (principal); N17.9 Acute kidney failure, unspecified; E87.1 Hypo-osmolality and hyponatremia; N30.00 Acute cystitis without hematuria; B96.20 Unspecified Escherichia coli [E. coli] as the cause of diseases classified elsewhere; F10.10 Alcohol abuse, uncomplicated; E86.0 Dehydration; I10 Essential (primary) hypertension; N14.4 Toxic nephropathy, not elsewhere classified; E87.6 Hypokalemia
CPT/HCPCS: 36415; 51702; 71045; 74176; 76705; 80048; 80053; 80076; 80307; 80320; 80329; 81003; 81015; 82550; 82553; 82962; 83690; 83735; 83880; 83930; 83935; 84100; 84132; 84300; 84484; 85025; 85610; 85730; 87077; 87086; 87088; 87186; 93005; 94760; 97163; 99285; J0696; J0744; J2405; J3411; J7030